=== PATIENT | male | born 1990 | race Caucasian/White ===

== ENCOUNTER 2020-03-07 16:04 | Emergency (ER) | payer BC, OTHER ==
[2020-03-07 16:51] LABS: Absolute Lymphocytes (CBC) 2.5 K/uL (0.7-4.9); Basophils % 0.4 % (0-1.3); Hematocrit 45.6 % (39.6-49.0); Lymphocytes % 27.8 % (15.3-44.8); RBC Red Blood Cell Count 5.49 M/uL (4.33-5.43)
[2020-03-07 16:53] LABS: Protime INR 1.03
[2020-03-07] MEDS ORDERED: ramipriL 5 MG CAP PO ONE (17:00)
[2020-03-07 17:10] LABS: ALT/SGPT 35 U/L (12-78); AST/SGOT 17 U/L (15-37); Albumin 4.4 g/dL (3.4-5.0); Alkaline Phosphatase 81 U/L (45-117); BUN Blood Urea Nitrogen 18 mg/dL (7-18); Bicarbonate 30 mmol/L (21-32); Bilirubin Direct 0.1 mg/dL (0-0.2); Bilirubin Total 0.6 mg/dL (0.2-1.0); Glucose Level 88 mg/dL (74-106); Magnesium 2.5 mg/dL (1.8-2.4); NT PRO-BNP 18 pg/mL (<125); Potassium 3.9 mmol/L (3.5-5.1); Protein, Total 7.9 g/dL (6.4-8.2); Sodium Level 141 mmol/L (136-145); Troponin (Emerg Dept Use Only) < 0.02 ng/mL (0.0-0.045)
--- NOTE | 2020-03-07 18:07 | RAD REPORT ---
EXAM DESCRIPTION: Francisco Single View03/07/2020 4:59 pm CLINICAL HISTORY: Chest pain COMPARISON: none FINDINGS: The lungs appear clear of acute infiltrate. The heart is normal size IMPRESSION: No acute abnormalities displayed
[2020-03-07] MEDS ORDERED: cloNIDine HCL 0.1 MG TAB ONE (18:19)
--- NOTE | 2020-03-07 18:41 | ER ---
Nurse's Notes [facility] Name: Allen Tavares Age: 29 yrs Sex: Male : 1990 Arrival Date: 03/07/2020 Time: 16:10 Bed 23 Private MD: Diagnosis: Essential (primary) hypertension;Chest pain, unspecified Presentation: 03/07 16:12 Chief complaint: EMS states: "the pt is reporting chest pain in the left chest wall. jd3 5/10 pain is reported. history of hypertension and family history of heart problems. 324 aspirin was given.". Coronavirus screen: At this time, the client does not indicate any symptoms associated with coronavirus-19. Ebola Screen: Patient negative for fever greater than or equal to 101.5 degrees Fahrenheit, and additional compatible Ebola Virus Disease symptoms. Initial Sepsis Screen: Does the patient meet any 2 criteria? No. Patient's initial sepsis screen is negative. Does the patient have a suspected source of infection? No. Patient's initial sepsis screen is negative. Risk Assessment: Do you want to hurt yourself or someone else? Patient reports no desire to harm self or others. Onset of symptoms was March 07, 2020. 16:12 Method Of Arrival: EMS: [email or web address] jd3 16:12 Acuity: DEBBIE 3 jd3 Historical: - Allergies: 16:17 No Known Allergies; jd3 - Home Meds: 16:17 Ramipril Oral [Active]; jd3 - PMHx: 16:17 Hypertension; jd3 - PSHx: 16:17 None; jd3 - Immunization history:: Adult Immunizations up to date. - Social history:: Smoking status: Patient denies any tobacco usage or history of. Screenin:40 Abuse screen: Denies threats or abuse. Nutritional screening: No deficits noted. jd3 Tuberculosis screening: No symptoms or risk factors identified. Fall Risk Ambulatory Aid- None/Bed Rest/Nurse Assist (0 pts). Gait- Normal/Bed Rest/Wheelchair (0 pts) Mental Status- Oriented to own ability (0 pts). Total Henderson Fall Scale indicates No Risk (0-24 pts). Assessment: 17:00 General: Appears in no apparent distress. comfortable, Behavior is calm, cooperative, zb appropriate for age. Pain: Complains of pain in chest and left lateral anterior chest. Pain: Pain does not radiate. Pain currently is 5 out of 10 on a pain scale. Quality of pain is described as sharp, Is intermittent. Neuro: Level of Consciousness is awake, alert, obeys commands, Oriented to person, place, time, situation. Cardiovascular: Heart tones S1 S2 Capillary refill < 3 seconds in bilateral fingers Patient's skin is warm and dry. Respiratory: Airway is patent Respiratory effort is even, unlabored, Respiratory pattern is regular, symmetrical, Breath sounds are clear bilaterally. GI: Patient currently denies diarrhea, nausea, vomiting. : No signs and/or symptoms were reported regarding the genitourinary system. EENT: No signs and/or symptoms were reported regarding the EENT system. Derm: Skin is intact, is healthy with good turgor, Skin is dry, Skin is pink, warm \\T\\ dry. normal. Musculoskeletal: Circulation, motion, and sensation intact. Range of motion: intact in all extremities. Vital Signs: 16:17 BP 154 / 115; Pulse 88; Resp 17 S; Temp 97.9(O); Pulse Ox 100% on R/A; Weight 99.79 kg jd3 (R); Height 5 ft. 8 in. (172.72 cm) (R); Pain 5/10; 17:25 BP 145 / 105; Pulse 77; Resp 15 S; Pulse Ox 99% on R/A; jd3 18:14 BP 143 / 102; Pulse 96; Resp 17 S; Pulse Ox 100% on R/A; jd3 16:17 Body Mass Index 33.45 (99.79 kg, 172.72 cm) jd3 ED Course: 16:10 Patient arrived in ED. as 16:12 Rin Rivera FNP-C is PHCP. snw 16:12 Leonel Merino MD is Attending Physician. snw 16:15 Triage completed. jd3 16:17 Arm band placed on. jd3 16:24 Delmi Cosme RN is Primary Nurse. zb 16:40 Patient has correct armband on for positive identification. Bed in low position. Call jd3 light in reach. Side rails up X2. Adult w/ patient. warehouse forklift operator on. Pulse ox on. NIBP on. 16:40 EKG done, by ED staff, reviewed by Rin RIVERA. Inserted saline lock: 20 gauge jd3 in right antecubital area, using aseptic technique. Blood collected. 19:08 No provider procedures requiring assistance completed. IV discontinued, intact, zb bleeding controlled, No redness/swelling at site. Pressure dressing applied. Administered Medications: 17:30 Drug: Ramipril 5 mg Route: PO; jd3 19:01 Follow up: Response: No adverse reaction; Blood pressure is lowered zb 18:15 Drug: cloNIDine 0.1 mg Route: PO; zb 19:02 Follow up: Response: No adverse reaction; Blood pressure is lowered zb Outcome: 18:40 Discharge ordered by MD. orozco 19:08 Discharged to home ambulatory, with family. zb 19:08 Condition: stable 19:08 Discharge instructions given to patient, family, Instructed on discharge instructions, follow up and referral plans. medication usage, Demonstrated understanding of instructions, follow-up care, medications, Prescriptions given X 1. 19:10 Patient left the ED. zb Signatures: Rin Rivera, HSPT TUTOR-C HSPT TUTOR-Soila Noel Jonathon RN RN Delmi Bernal RN RN zb
--- NOTE | 2020-03-07 18:41 | EDPHYS ---
Physician Documentation [facility] Name: Allen Tavares Age: 29 yrs Sex: Male : 1990 Arrival Date: 03/07/2020 Time: 16:10 Bed 23 Private MD: ED Physician Leonel Merino HPI: 03/07 16:19 This 29 yrs old Male presents to ER via EMS with complaints of chest pain. snw 16:19 The patient or guardian reports chest pain that is located primarily in the anterior snw chest wall, left. The pain does not radiate. Associated signs and symptoms: Pertinent positives: None. The chest pain is described as sharp. Modifying factors: The symptoms are alleviated by nothing. Severity of pain: At its worst the pain was moderate. The patient has not experienced similar symptoms in the past. It is unknown whether or not the patient has recently seen a physician. Takes ramipril every other day, drinks one cup of coffee in the am, no creatine or other work out supplements. Historical: - Allergies: 16:17 No Known Allergies; jd3 - Home Meds: 16:17 Ramipril Oral [Active]; jd3 - PMHx: 16:17 Hypertension; jd3 - PSHx: 16:17 None; jd3 - Immunization history:: Adult Immunizations up to date. - Social history:: Smoking status: Patient denies any tobacco usage or history of. ROS: 16:23 Constitutional: Negative for fever, chills, and weight loss, Eyes: Negative for injury, snw pain, redness, and discharge, ENT: Negative for injury, pain, and discharge, Neck: Negative for injury, pain, and swelling, Respiratory: Negative for shortness of breath, cough, wheezing, and pleuritic chest pain, Abdomen/GI: Negative for abdominal pain, nausea, vomiting, diarrhea, and constipation, Back: Negative for injury and pain, : Negative for injury, bleeding, discharge, and swelling, MS/Extremity: Negative for injury and deformity, Skin: Negative for injury, rash, and discoloration, Neuro: Negative for headache, weakness, numbness, tingling, and seizure, Psych: Negative for depression, anxiety, suicide ideation, homicidal ideation, and hallucinations. 16:23 Cardiovascular: Positive for chest pain, of the left lateral anterior chest. Exam: 16:19 Head/Face: Normocephalic, atraumatic. Eyes: Pupils equal round and reactive to light, snw extra-ocular motions intact. Lids and lashes normal. Conjunctiva and sclera are non-icteric and not injected. Cornea within normal limits. Periorbital areas with no swelling, redness, or edema. ENT: Nares patent. No nasal discharge, no septal abnormalities noted. Tympanic membranes are normal and external auditory canals are clear. Oropharynx with no redness, swelling, or masses, exudates, or evidence of obstruction, uvula midline. Mucous membranes moist. Neck: Trachea midline, no thyromegaly or masses palpated, and no cervical lymphadenopathy. Supple, full range of motion without nuchal rigidity, or vertebral point tenderness. No Meningismus. Chest/axilla: Normal chest wall appearance and motion. Nontender with no deformity. No lesions are appreciated. Cardiovascular: Regular rate and rhythm with a normal S1 and S2. No gallops, murmurs, or rubs. Normal PMI, no JVD. No pulse deficits. Respiratory: Lungs have equal breath sounds bilaterally, clear to auscultation and percussion. No rales, rhonchi or wheezes noted. No increased work of breathing, no retractions or nasal flaring. Abdomen/GI: Soft, non-tender, with normal bowel sounds. No distension or tympany. No guarding or rebound. No evidence of tenderness throughout. Back: No spinal tenderness. No costovertebral tenderness. Full range of motion. Skin: Warm, dry with normal turgor. Normal color with no rashes, no lesions, and no evidence of cellulitis. MS/ Extremity: Pulses equal, no cyanosis. Neurovascular intact. Full, normal range of motion. Neuro: Awake and alert, GCS 15, oriented to person, place, time, and situation. Cranial nerves II-XII grossly intact. Motor strength 5/5 in all extremities. Sensory grossly intact. Cerebellar exam normal. Normal gait. Psych: Awake, alert, with orientation to person, place and time. Behavior, mood, and affect are within normal limits. 16:19 Constitutional: The patient appears in no acute distress, alert, awake. Vital Signs: 16:17 BP 154 / 115; Pulse 88; Resp 17 S; Temp 97.9(O); Pulse Ox 100% on R/A; Weight 99.79 kg jd3 (R); Height 5 ft. 8 in. (172.72 cm) (R); Pain 5/10; 17:25 BP 145 / 105; Pulse 77; Resp 15 S; Pulse Ox 99% on R/A; jd3 18:14 BP 143 / 102; Pulse 96; Resp 17 S; Pulse Ox 100% on R/A; jd3 16:17 Body Mass Index 33.45 (99.79 kg, 172.72 cm) j MDM: 16:12 Patient medically screened. snw 18:42 Data reviewed: vital signs, nurses notes. Data interpreted: Pulse oximetry: on room air snw is 100 %. Interpretation: normal. Counseling: I had a detailed discussion with the patient and/or guardian regarding: the historical points, exam findings, and any diagnostic results supporting the discharge/admit diagnosis, the presence of at least one elevated blood pressure reading (>120/80) during this emergency department visit, lab results, radiology results, the need for outpatient follow up, to return to the emergency department if symptoms worsen or persist or if there are any questions or concerns that arise at home. Special discussion: Based on the history and exam findings, there is no indication for further emergent testing or inpatient evaluation. I discussed with the patient/guardian the need to see the primary care provider for further evaluation of the symptoms. 03/07 16:16 Order name: Basic Metabolic Panel snw 03/07 16:16 Order name: CBC with Diff snw 03/07 16:16 Order name: LFT's snw 03/07 16:16 Order name: Magnesium snw 03/07 16:16 Order name: NT PRO-BNP snw 03/07 16:16 Order name: PT-INR snw 03/07 16:16 Order name: Troponin (emerg Dept Use Only) snw 03/07 16:53 Order name: CBC with Automated Diff; Complete Time: 16:54 EDMS 03/07 16:55 Order name: Protime (+INR); Complete Time: 16:57 EDMS 03/07 17:11 Order name: Basic Metabolic Panel; Complete Time: 17:18 EDMS 03/07 17:11 Order name: Liver (Hepatic) Function; Complete Time: 17:18 EDMS 03/07 17:11 Order name: Troponin (Emerg Dept Use Only); Complete Time: 17:18 EDMS 03/07 17:11 Order name: NT PRO-BNP; Complete Time: 17:18 EDMS 03/07 17:11 Order name: Magnesium; Complete Time: 17:18 EDMS 03/07 16:16 Order name: XRAY Chest (1 view) snw 03/07 16:16 Order name: EKG; Complete Time: 16:17 snw 03/07 16:16 Order name: Cardiac monitoring; Complete Time: 16:27 snw 03/07 16:16 Order name: EKG - Nurse/Tech; Complete Time: 16:27 snw 03/07 16:16 Order name: IV Saline Lock; Complete Time: 16:40 snw 03/07 16:16 Order name: Labs collected and sent; Complete Time: 16:40 snw 03/07 16:16 Order name: O2 Per Protocol; Complete Time: 16:27 snw 03/07 16:16 Order name: O2 Sat Monitoring; Complete Time: 16:27 snw 03/07 17:18 Order name: Recheck B/P; Complete Time: 17:26 snw 03/07 18:10 Order name: Recheck B/P; Complete Time: 18:15 snw 03/07 18:11 Order name: RAD; Complete Time: 18:39 EDMS Administered Medications: 17:30 Drug: Ramipril 5 mg Route: PO; jd3 19:01 Follow up: Response: No adverse reaction; Blood pressure is lowered zb 18:15 Drug: cloNIDine 0.1 mg Route: PO; zb 19:02 Follow up: Response: No adverse reaction; Blood pressure is lowered zb Disposition: 03/07/20 18:40 Discharged to Home. Impression: Essential (primary) hypertension, Chest pain, unspecified. - Condition is Stable. - Discharge Instructions: Nonspecific Chest Pain, Hypertension, Form - Blood Pressure Record Sheet. - Prescriptions for ramipril 10 mg Oral capsule - take 1 capsule by ORAL route once daily; 60 capsule. - Work release form, Medication Reconciliation Form, Thank You Letter, Antibiotic Education, Prescription Opioid Use form. - Follow up: Private Physician; When: 1 - 2 days; Reason: Re-evaluation by your physician. Follow up: Emergency Department; When: As needed; Reason: Worsening of condition. - Notes: Please take Ramipril daily Addendum: 03/09/2020 19:43 Co-signature as Attending Physician, Leonel Merino MD. r n Signatures: Dispatcher [employer] Rin Chávez, CERTIFIED SURGICAL FIRST ASSISTANT-C CERTIFIED SURGICAL FIRST ASSISTANT-Csnw Leonel Merino MD MD rn Davies, Jonathon, RN RN jDelmi Monsivais RN RN zb Corrections: (The following items were deleted from the chart) 03/07 19:10 18:40 03/07/2020 18:40 Discharged to Home. Impression: Essential (primary) zb hypertension; Chest pain, unspecified. Condition is Stable. Forms are Medication Reconciliation Form, Thank You Letter, Antibiotic Education, Prescription Opioid Use. Follow up: Private Physician; When: 1 - 2 days; Reason: Re-evaluation by your physician. Follow up: Emergency Department; When: As needed; Reason: Worsening of condition. snw
--- NOTE | 2020-03-08 11:57 | EKG ---
Test Date: 2020-03-07 Test Time: 16:23:27 Plasma Specialist: CHELSEA MEASUREMENT RESULTS: Intervals: Rate: 71 CA: 138 QRSD: 96 QT: 362 QTc: 393 [place]: P: 47 CA: 138 QRS: 71 T: 35 INTERPRETIVE STATEMENTS: Normal sinus rhythm Normal ECG No previous ECG available for comparison Electronically Signed On 03-08-20 11:52:26 COMPUTER EDUCATION TEACHER by Benny Palacio
[2020-03-11 00:33] VITALS: TEMP 97.9
[2020-03-11 00:36] VITALS: BP 143/102; O2SAT 100
== END 2020-03-07 19:10 | disposition home or self-care (01) ==
LOC: ER 16:04
DX: I10 Essential (primary) hypertension (principal)
CPT/HCPCS: 36415; 71045; 80048; 80076; 83735; 83880; 84484; 85025; 85610; 93005; 99284

== ENCOUNTER 2020-05-18 08:20 | Day surgery (SDC) | payer BC ==
[2020-05-18] MEDS ORDERED: Ringers Lactate 1,000 ML IV ONE (09:18)
[2020-05-18] MEDS ORDERED: CEFAZOLIN/SWI 2gm 2 GM/20 ML SYR ONE (09:19)
[2020-05-18] MEDS ORDERED: MIDAZOLAM HCL 2 MG/2 ML INJ ONE (10:13)
[2020-05-18] MEDS ORDERED: FENTANYL CITR 100 MCG/2 ML ONE ×2 (10:13→10:58)
[2020-05-18] MEDS ORDERED: propofoL 200 MG/20 ML VIAL IV ONE (10:13)
[2020-05-18] MEDS ORDERED: LIDOCAINE 2% MPF 5 ML VIAL ONE (10:13)
[2020-05-18] MEDS ORDERED: ROCURONIUM 50 MG/5 ML VIAL IV ONE (10:13)
[2020-05-18] MEDS ORDERED: dexAMETHasone 10 MG/ML VIAL ONE (10:16)
--- NOTE | 2020-05-18 11:09 | P.OP ---
Preoperative diagnosis: Acute on Chronic Appendicitis Postoperative diagnosis: Acute on Chronic Appendicitis Primary procedure: Laparoscopic Appendectomy Anesthesia: GETA + Local Estimated blood loss: <5cc Specimen: Vermiform Appendix, peritoneal implant Findings: RIGHT pelvic peritoneal implant, mild dilation of appendix Complications: None Transferred to: Recovery Room Condition: Good
[2020-05-18] MEDS ORDERED: GLYCOPYRROLATE 0.2 MG/ML SYR ONE ×2 (11:19)
[2020-05-18] MEDS ORDERED: NEOSTIGMINE 1 MG/ML -5 ML ONE (11:21)
[2020-05-18] MEDS ORDERED: KETOROLAC 30 MG/ML INJ ONE (11:21)
--- NOTE | 2020-05-18 11:49 | OP ---
Date of Procedure: 05/18/2020 Surgeon: Jorge Ackerman MD, Preoperative Diagnosis: Acute on chronic appendicitis. Postoperative Diagnosis: Acute on chronic appendicitis. Procedure Performed: Laparoscopic appendectomy. Anesthesia: General endotracheal plus local with 0.25% Marcaine with epinephrine. Estimated Blood Loss: Less than 5 mL. Specimen: 1.Vermiform appendix. 2.Peritoneal implant from the right pelvic sidewall. Findings: 1.Right mild dilatation of the appendix. 2.Right pelvic sidewall peritoneal implant. Complications: None. The patient was transferred to recovery room in good condition. Procedure In Detail: Informed consent was obtained. The patient was brought to the operating room, prepped and draped in the usual sterile fashion. After adequate anesthesia was achieved, an infraumb ilical area was anesthetized with 0.25% Marcaine, sharply incised. A 5 mm 0-degree optical trocar wa s introduced in the abdomen without evidence of complication under direct visualization. No injury t o vital structure was appreciated upon entry into the abdomen. Insufflation was obtained to 15 mmHg at this time. Two additional trocars were placed, one in the right lower quadrant and one in the lef t lower quadrant. Both of these were similarly anesthetized, sharply incised, and a 5 mm trocar was introduced without evidence of complication. The umbilical trocar was then up-sized to a 12 mm under direct visualization without evidence of complication. The patient was positioned with head down ri ght side up position. Ratcheted grasper was used to grasp the base of the appendix. It was found to be dilated in the right lower quadrant. A mesoappendiceal window was created. [place] retractor a nd Endo-SHAMAR 35 blue load was fired across the base of the appendix. Good approximation of the tissue . The LigaSure device was then used to take the mesoappendix down without evidence of complication. The appendix was then placed in EndoCatch bag with the umbilical trocar. The abdomen was then copio usly irrigated and the pelvis was inspected at this point. After irrigation, there was a small perit singleton implant which was grasped and removed, which appeared benign on the stalk near the pelvic sidew all. This was sent off for pathologic examination as well. The area was copiously irrigated. Once again, no additional hemostatic measures required. The patient was positioned in neutral position. The remainder of the effluent was suctioned out. The umbilical trocar was then removed. The umbilic al trocar site was closed using a Tien-Shaina suture passer with 0 Vicryl in an interrupted fashi on with good approximation of tissues. The abdomen was completely desufflated under direct vision wi thout evidence of complication. All remaining trocars were removed. All skin incisions were copious ly irrigated and closed with 4-0 Monocryl in a running fashion. Dermabond was placed over the top. The patient tolerated the procedure well without evidence of complication and transferred to PACU in good condition. All counts were correct at the end of the case. IRASEMA/LIVIA Voice ID: [id number] Report ID: [id number]
[2020-05-18] MEDS ORDERED: ONDANSETRON 4 MG/2 ML VIAL ONE (12:15)
[2020-05-18] MEDS ORDERED: HYDROCODONE/APAP 10/325 TAB ONE (12:56)
== END 2020-05-18 13:08 | disposition home or self-care (01) ==
LOC: DS 08:20
PROVIDERS: ATTEND Surgery
PROC: 0DTJ4ZZ Resection of Appendix, Percutaneous Endoscopic Approach (ICD-10-PCS; principal; 2020-05-18)
DX: K35.80 Unspecified acute appendicitis (principal); Z20.822 Contact with and (suspected) exposure to COVID-19
CPT/HCPCS: 88304; 88305; 44970; U0003; J2704; J2250; J3010 ×2; J1100; J2710; J0690; J7120; J2405; 88300